=== PATIENT | female | born 1950 | race Caucasian/White ===

== ENCOUNTER → 2019-11-10 | Day surgery (SDC) | payer MEDICARE, OTHER ==
[2019-11-07 09:53] LABS: BASOPHILS % 0.4 % (0.0-1.0); EOSINOPHILS # (AUTO) 0.1 (0.0-0.4); EOSINOPHILS % 1.3 % (0.0-6.0); HEMATOCRIT 38.4 % (34.2-44.1); HEMOGLOBIN 11.9 g/dL (12.0-16.0); LYMPHOCYTES # (AUTO) 1.9 (1.0-3.2); LYMPHOCYTES % 26.7 % (18.0-39.1); MEAN CORPUSCULAR HEMOGLOBIN 29.9 pg (28-32); MEAN CORPUSCULAR VOLUME 96.5 fL (81-99); MONOCYTES # (AUTO) 0.5 (0.2-0.8); MONOCYTES % 6.4 % (4.4-11.3); NEUTROPHILS # (AUTO) 4.6 (2.1-6.9); NEUTROPHILS % 65.1 % (38.7-80.0); PLATELET COUNT 218 x10e3/uL (140-360); RED BLOOD COUNT 3.98 x10e6/uL (3.6-5.1); RED CELL DISTRIBUTION WIDTH 13.7 % (11.7-14.4)
[~2019-11-10] MED LIST: ALLOPURINOL100 MG PO; ATORVASTATIN CA20 MG PO; FENTANYL CITRATE/PF 100MCG/2 ML INJ ONE; IOPAMIDOL 200 MG/ML 20 ML VIAL IT ONE; LEVOTHYROXINE50 MCG PO; LIDOCAINE HCL 1% 30ML-PF VIAL ONE; LIDOCAINE HCL 2% LOCAL INJ 5 ML SDV VIAL INJ ONE; LISINOPRIL-HCT1 EAC1 PO; MAGNESIUM OXID400 MG PO; MIDAZOLAM HCL 2 MG/2 ML VIAL ONE; MULTI-VITAMIN1 EACH PO; OMEPRAZOLE40 MG PO; PROPOFOL IV EMULSION 10 MG/ML 20 ML VIAL ONE; SERTRALINE HCL100 MG PO; TRIAMCINOLONE ACET 40 MG/ML VIAL ONE
--- OUTSIDE RECORDS SUMMARY | 2019-11-10 05:56 | XMS REPORT | Clinical Summary ---
Author Author [facility] Organization [facility] Address Unknown Phone Unavailable Care Team Providers Care Validation Leader Name Role Phone Tomer Conner DO PCP Allergies Comments Active Allergy Reactions Severity Noted Date Nausea Codeine 02/15/2018 Sulfa drugs make mouth hard an dry Other 02/15/2018 Kills antibody in vowels an upset stomach Tetracycline 02/15/2018 Medications End Date Status Medication Sig Dispensed Refills Start Date Active sertraline (ZOLOFT) 100 Take 1 tablet 0 /02/ 201 MG tablet by mouth 8 daily. Active lisinopril-hydrochlorothi Take 1 tablet 0 01/0 2/201 azide by mouth 8 (PRINZIDE,ZESTORETIC) daily. 20-25 mg per tablet Active atorvastatin (LIPITOR) 40 Take 1 tablet 0 01/3 1/201 MG tablet by mouth 8 daily. Active levothyroxine (SYNTHROID, Take 50 mcg 0 LEVOXYL) 50 mcg tablet by mouth every morning. Active glimepiride (AMARYL) 1 MG Take 1 mg by 0 tablet mouth as needed. Active omeprazole (PriLOSEC) 20 Take 20 mg by 0 MG capsule mouth daily. Active MAGNESIUM OXIDE ORAL Take 1,500 mg 0 by mouth daily. 500 mg qam and 1000 mg qhs Active allopurinol (ZYLOPRIM) Take 100 mg 0 100 MG tablet by mouth as needed. Active multivitamin (THERAGRAN) Take 1 tablet 0 tablet by mouth daily. Active Problems No known active problems Family History Medical History Relation Name Comments Diabetes Father Cancer Maternal Aunt Breast cancer Mother Relation Name Status Comments Father Maternal Aunt Mother Social History Date Tobacco Use Types Packs/Day Years Used Current Every Day Smoker Cigarettes 0.5 50 Smokeless Tobacco: Never Used Comments: on and off Drinks/Week oz/Week Comments Alcohol Use No Sex Assigned at Date Recorded Not on file Industry Job Start Date Occupation Not on file Not on file Not on file Travel End Travel History Travel Start No recent travel history available. Last Filed Vital Signs Not on file Plan of Treatment Health Maintenance Due Date Last Done Comments BREAST CANCER SCREENING 1999 COLONOSCOPY SCREENING 1999 SHINGLES VACCINES (#1) 1999 65+ PNEUMOCOCCAL VACCINE 2014 (1 of 2 - PCV13) INFLUENZA VACCINE 01/28/2020 Results Not on fileafter 11/09/2018 Insurance Type Payer Benefit Subscriber ID Effective Phone Address Plan / Dates Group Medicare MEDICARE MEDICARE xxxxxxxxxxx 2014-P BECK, PART A AND resent [place] [employer] BANKERS LIFE AND CASUALTY BANKERS xxxxxxxxx 02/14- LIFE AND Present CASUALTY Advance Directives For more information, please contact: [phone] Patient Oracle Analyst Explanation Type Date Recorded Advance Directives, Living Will and Medical Power of Paralegal Supervisor
--- OUTSIDE RECORDS SUMMARY | 2019-11-10 05:56 | XMS REPORT ---
Author Author [facility] t Organization [facility] Address [address] [place] [address] Phone Unavailable Care Team Providers Care Parts Picker Name Role Phone Magdaleno Conner DO PCP Sherie SOSA Attphys Unavailable Payers Payer Name Policy Type Policy Number Effective Date Expiration Date S ource Problems This patient has no known problems. Allergies, Adverse Reactions, Alerts Allergy Name Allergy Type Status Severity Reaction(s) Onset Date Inacti ve Date Treating Clinician Comments Source Sulfa (Sulfonamide Antibiotics) DA Active 2018-12-08 00 :00:00 [facility] codeine DA Active 2018-12-08 00:00:00 [facility] tetracycline DA Active SV 2018-12-08 00:00:00 [facility] Sulfa (Sulfonamide Antibiotics) DA Active MO 2018-08-16 00 :00:00 [facility] codeine DA Active MD 2018-08-16 00:00:00 [facility] tetracycline DA Active MD 2018-08-16 00:00:00 [facility] Sulfa (Sulfonamide Antibiotics) DA Active MO 2018-04-14 00 :00:00 [facility] codeine DA Active MD 2018-04-14 00:00:00 [facility] tetracycline DA Active MD 2018-04-14 00:00:00 [facility] Sulfa (Sulfonamide Antibiotics) DA Active MO 2018-04-06 00 :00:00 [facility] codeine DA Active MD 2018-04-06 00:00:00 [facility] tetracycline DA Active MD 2018-04-06 00:00:00 [facility] Sulfa (Sulfonamide Antibiotics) DA Active MO 2018-03-02 00 :00:00 [facility] codeine DA Active MD 2018-03-02 00:00:00 [facility] tetracycline DA Active MD 2018-03-02 00:00:00 [facility] Sulfa (Sulfonamide Antibiotics) DA Active MO 2018-02-16 00 :00:00 [facility] codeine DA Active MD 2018-02-16 00:00:00 [facility] tetracycline DA Active MD 2018-02-16 00:00:00 [facility] Codeine Propensity to adverse reactions to drug Active 2018-02-15 00:00:00 Nausea Kiran Gallagher Other Propensity to adverse reactions Active 00:00:00 Sulfa drugs make mouth hard an dry Kiran Gallagher Tetracycline Propensity to adverse reactions to drug Active 2018-02-15 00:00:00 Kills antibody in vowels an upse t stomach Kiran Gallagher Family History Family Member Diagnosis Comments Start Date Stop Date Source Natural father Diabetes [facility] Maternal aunt Cancer [facility] Natural mother Breast cancer Kiran Gallagher Social History Social Habit Start Date Stop Date Quantity Comments Source History of tobacco use Cigarette Smoker Kiran Gallagher Sex Assigned At Oswaldo Gallagher Cigarettes smoked current (pack per day) - Reported 00:00:00 2018-02-15 00:00:00 Kiarn Gallagher Cigarette pack-years 2018-02-15 00:00:00 2018-02-15 00:00:00 Kiran Gallagher Alcohol intake 2018-02-15 00:00:00 2018-02-15 00:00:00 Current non-drinker of alcohol (finding) Kiran Gallagher Tobacco Comment 2017-08-17 00:00:00 2017-08-17 00:00:00 on and off Kiran Gallagher Smoking Status Start Date Stop Date Source Current every day smoker 2018-02-15 00:00:00 Oswaldo Gallagher Medications Ordered Medication Name Filled Medication Name Start Date Stop Da te Current Medication? Ordering Clinician Indication Dosage Frequency Signature (SIG) Comments Components Source levothyroxine (SYNTHROID, LEVOXYL) 50 mcg tablet 2017-08-17 22:16:33 Yes 50ug QD Take 50 mcg by mouth every morning. Kiran Gallagher glimepiride (AMARYL) 1 MG tablet 2017-08-17 22:16:33 Yes 1mg Take 1 mg by mouth as needed. Kiran Gallagher omeprazole (PriLOSEC) 20 MG capsule 2017-08-17 22:16:33 Yes 20mg QD Take 20 mg by mouth daily. Kiran Gallagher MAGNESIUM OXIDE ORAL 2017-08-17 22:16:33 Yes 1500mg QD Take 1,500 mg by mouth daily. 500 mg qam and 1000 mg qhs Kiran Gallagher allopurinol (ZYLOPRIM) 100 MG tablet 2017-08-17 22:16:33 Ye s 100mg Take 100 mg by mouth as needed. Kiran Gallagher multivitamin (THERAGRAN) tablet 2017-08-17 22:16:33 Yes 1{tbl} QD Take 1 tablet by mouth daily. Kiran Gallagher atorvastatin (LIPITOR) 40 MG tablet 2017-07-29 00:00:00 Yes 1{tbl} QD Take 1 tablet by mouth daily. Kiran Monzon thodi sertraline (ZOLOFT) 100 MG tablet 2017-06-30 00:00:00 Yes 1{tbl} QD Take 1 tablet by mouth daily. Kiran Floyd st lisinopril-hydrochlorothiazide (PRINZIDE,ZESTORETIC) 20-25 m g per tablet 2017-06-30 00:00:00 Yes 1{tbl} QD Take 1 tablet by m outh daily. Kiran Gallagher Procedures This patient has no known procedures. Plan of Care Planned Activity Planned Date Details Comments Source Future Scheduled Test [code = ] Future Scheduled Test [code = ] Future Scheduled Test [code = ] Future Scheduled Test [code = ] Future Scheduled Test [code = ] Results Test Description Test Time Test Comments Results Result Comments Source - MRI L-SPINE W/O CONT 2019-03-28 11:04:00 Alyssa ent Name: KAELA DURAN Unit No: [id number] EXAMS: CPT CODE: [id number] MRI L-SPINE W/O CONT [id number] MRI OF THE LUMBAR SPINE: DIAGNOSIS: 1. At L1-2, disc desiccation. No central canal or foraminal stenosis. 2. At L2-3, moderate to marked disc degeneration 3 mm broad-based subligamentous disc protrusion. No central canal stenosis. Moderate to marked bilateral foraminal stenosis secondary to endplate remodeling lateralizing disc. 3. At L3-4, moderate disc degeneration. Grade 1 spondylolisthesis of L3 on L4. Findings are suggestive of a left hemilaminotomy. Marked bilateral facet arthropathy. Marked right foraminal moderate to marked left foraminal stenosis. There is a approximately 7 mm right foraminal disc herniation which appears to impinge the right L3 nerve root. This is not significantly changed in the interval from the previous exam. 4. At L4-5, marked disc degeneration. No central canal stenosis. Mild to moderate facet arthropathy. Moderate bilateral foraminal stenosis. 5. At L5-S1, disc desiccation. No central canal or foraminal stenosis. Marked right facet moderate to marked left facet arthropathy. 6. High signal lesions in the right kidney are compatible with renal cyst. These were seen on the previous exam. COMMENT: COMPARISON: The current exam is compared to a previous exam dated October 09, 2017. Sagittal T1, T2 and STIR and axial T1 and T2-weighted sequences are obtained of the lumbar spine. The lumbar vertebrae are within normal limits in signal. The findings are as above. The conus is in the expected location. at 1104 Reported and signed by: Alber Stiles MD CC: Chanel Quintana MD Technologist: Keith Morton Transcribed D/ (5004) t.SDR.GVG [facility] NAME: KAELA DURAN [address] [facility] PHYS: [id number] - Chanel Quintana : 1950 AGE: 68 SEX: F [place], [place] [address] LOC: Y.MRI PHONE #: [phone] EXAM DATE: 03/26/2019 STATUS: DEP CLI FAX #: [phone] RAD #: D/C DT PAGE 1 Signed Report Patient Name: KAELA DURAN Unit No: [id number] EXAMS: CPT CODE: [id number] MRI L-SPINE W/O CONT 38799 <Continued> Orig Print D/T: S: 03/28/2019 (1108) [facility] NAME: KAELA DURAN [address] [facility] PHYS: AUREAURosenda - Chanel Quintana : 1950 AGE: 68 SEX: F [place], [place] [address] LOC: Y.MRI PHONE #: [phone] EXAM DATE: 03/26/2019 STATUS: DEP CLI FAX #: [phone] RAD #: D/C DT PAGE 2 Signed Report GLUBED 2018-12-08 11:26:00 Test Item GLUBED (test code = GLUBED) 96 mg/dL 60-125 N - XR FLUORO FOR SPINE [id number] 11:14:00 Patient Name: KAELA DURAN Unit No: [id number] EXAMS: CPT CODE: [id number] XR FLUORO FOR SPINE INJ 69791 LUMBAR TRANSFORAMINAL INJECTION REFERRING PHYSICIAN: PREOPERATIVE DIAGNOSIS: Degenerative Lumbar Disc Disease. POSTOPERATIVE DIAGNOSIS: Right lumbar radiculopathy PROCEDURES PERFORMED 1. Fluoroscopically guided needle localization of the right L3, right L4, right L5 spinal nerve/nerves with transforaminal epidural steroid injection/injections. 2. Transforaminal epidurogram/epidurograms at right L3, left L4, left L5. FINDINGS: Poor filling all. Concordant provocation right L4 hip right L3 anterior thigh. Pain relief-100%. ANTIBIOTIC: Cefazolin ESTIMATED BLOOD LOSS: Minimal ANESTHESIA: (TIVA )Total intravenous anesthetic (patient intolerant to sedatives and hypnotics) COMPLICATIONS: None DETAILS OF PROCEDURE: After obtaining stable vital signs, informed consent and IV access, with no known contraindications to proceeding, the patient was taken to the fluoroscopy suite and placed in a prone position with all extremities padded and appropriate monitors placed. A sterile prep and drape was performed over the lumbosacral spine. Using fluoroscopic visualiza tion at each level the insertion site was marked for a paravertebral appro ach to the foramen. Using standard technique, a 25 gauge needle was advanc ed to the base of the pedicle. In AP view, final positioning was obtained outside the 6 on the clock position on the pedicle. Then, 1 ml of Isovue-3 00 contrast was injected to produce the epidurograms. No paresthesias were elicited with needle insertion or injection and there were no signs of intravascular or intrathecal uptake. Then, with 1 ml of 4% lidocaine and 10 mg of triamcinolone was injected incrementally with frequent negat sandi aspirations. There were no signs of intravascular or intrathecal uptak e. Each subsequent level was done using the same technique and medications . The patient's vital signs remained stable. The patient was taken to the PACU in good condition. at 1114 Reported and signed by: Charlie Rodriguez M.D. [facility] NAME: KAELA DURAN [address] [facility] PHYS: Charlie Park MD [place] [address] : 1950 AGE: 68 SEX: F LOC: CARLITOS PHONE #: [phone] EXAM DATE: 12/08/2018 STATUS: REG [facility] FAX #: [phone] RAD #: D/C DT PAGE 1 Signed Report (CONTINUED) Patient Name: KAELA DURAN Unit No: [id number] EXAMS: CPT CODE: [id number] XR FLUORO FOR SPINE INJ 90275 <Continued> CC: Tomer Conner DO Technologist: Melany Delgado(R) Transcribed D/ (1829) tFINN [facility] NAME: KAELA DURAN [address] [facility] PHYS: Charlie Park MD [place] [address] : 1950 AGE: 68 SEX: F LOC: [place] PHONE #: [phone] EXAM DATE: 12/08/2018 STATUS: REG [facility] FAX #: [phone] RAD #: D/C DT PAGE 2 Signed Report Patient Name: KAELA DURAN Unit No: [id number] EXAMS: CPT CODE: [id number] XR FLUORO FOR SPINE INJ 68852 <Continued> Orig Print D/T: S: 12/08/2018 (7338) [facility] NAME: KAELA DURAN [address] [facility] PHYS: DOCUD - Doctor,Charlie East MD [place], [place] [address] : 1950 AGE: 68 SEX: F LOC: CAR[place] PHONE #: [phone] EXAM DATE: 12/08/2018 STATUS: REG [facility] FAX #: [phone] RAD #: D/C DT PAGE 3 Signed Report [id number] 09:36:00* Test Item Value Reference Range Interpretation Comments GLUBED (test code = GLUBED) 104 mg/dL 60-125 N BREAST ULTRASOUND [id number] 14:18:24- BREAST ULTRASOUND BILATERALULTRASOUND OF BOTH BREASTS AND BOTH AXILLA: 09/20/2018CLINICAL: Followup to previous exam. Comparison is made to exams dated 09/20/2018 mammogram - [facility]-, 04/03/2018 mammogram, 04/12/2016 mammogram - [facility], 08/14/2015 ultrasound, and 08/14/2015 mammogram - [facility]. Real-time ultrasound of both breasts and both axilla was performed. No abnormalities were seen sonographically in either breast or either axilla. Clinical breast exam was unremarkable.IMPRESSION: NEGATIVE There is no sonographic evidence of malignancy. Resume annual screening mammography in one year. Fariha Brown M.D. dm/:09/20/2018 14:18:24 Entry: - 09/23/2018 09:40:28copy to: Tomer Conner D.O., ph: [phone], fax: [phone] Technologist: Penny Holden , [facility]-letter sent: BIRADS 1-2 Combo FU Letter Ultrasound BI-RADS: 1 NegativeDIAG MAMM RIGHT JEFF CAD DIGITAL 2018-09-20 14:17:34 - DIAG MAMM RIGHT JEFF CAD DIGITALUNILATERAL RIGHT DIGITAL DIAGNOSTIC MAMMOGRAM 3D/2D WITH CAD: 09/20/2018CLINICAL: Followup to previous exam. Digital breast tomosynthesis was performed in addition to routine CC and MLO views. Current mammographic images were evaluated by either a Negotiant M-Vu or a Hologic ImageChecker CAD (computer aided detection system). Comparison is made to exams dated 04/03/2018 mammogram, 04/12/2016 mammogram - [facility], and 04/14/2015 mammogram - [facility]. There are scattered fibroglandular tissues in the right breast. There is a post surgical scar in the right breast at 1 o'clock, 10 cm from the nipple, from the removal of a sebaceous cyst. No other significant masses or calcifications are seen in the breast. IMPRESSION: BENIGNUltrasound pending for additional evaluation. There is no mammographic evidence of malignancy. Fariha Brown M.D. dm/:09/20/2018 14:17:34 Entry: - 09/23/2018 09:39:41copy to: Tomer Conner D.O., ph: [phone], fax: [phone] Technologist: Yanelis Felton , [facility] BI-RADS: 2 BenignGLUBED 2018-09-03 08:58:00* Test Item Value Reference Range Interpretation Comments GLUBED (test code = GLUBED) 94 mg/dL 60-125 N CHEST 2 VIEWS [place] [address] Patient Name: KAELA DURAN MR #: [id number] : 1950 Age/Sex: 66/F Req #: [id number] Adm Physician: Ordered by: LUIS SOSA MD Report #: [id number] Location: OR Room/Bed: Procedure: [id number] DX/CHEST 2 VIEWS Exam Date: 0 03/25/17 Exam Time: 1700 REPORT STATUS: Signed PROCEDURE: Frontal and lateral views of the chest. COMPARISON: None. INDICATIONS: PREOPERATIVE FOR CYST REMOVAL FINDINGS: Lines/tu bes: 08/15/10 Lungs: The lungs are well inflated and clear. There is no ev idence of pneumonia or pulmonary edema. Pleura: There is no pleural ef fusion or pneumothorax. Heart and mediastinum: The heart and the mediasti num are normal. Bones: No acute bony abnormality. Degenerative changes of spine. IMPRESSION: 1. No acute cardiopulmonary disease. Dic tated by: Tano Blake M.D. on 03/25/2017 at 17:23 Electronically appro solange by: Tano Blake M.D. on 03/25/2017 at 17:23 Dictated By : TANO BLAKE MD 172 Transcribed By: AVTAR on 03/25/171722 COPY TO: LUIS SOSA MD
[2019-11-10 08:30] VITALS: BP 107/82
== END | disposition home or self-care (01) ==
LOC: OR 05:48
PROVIDERS: ATTEND Physical Medicine & Rehabilitation Pain Medicine
DX: M47.896 Other spondylosis, lumbar region (principal); M96.1 Postlaminectomy syndrome, not elsewhere classified; J44.9 Chronic obstructive pulmonary disease, unspecified; I10 Essential (primary) hypertension; E78.5 Hyperlipidemia, unspecified; E03.9 Hypothyroidism, unspecified; E11.9 Type 2 diabetes mellitus without complications; E66.01 Morbid (severe) obesity due to excess calories; F32.9 Major depressive disorder, single episode, unspecified; Z88.6 Allergy status to analgesic agent; Z88.1 Allergy status to other antibiotic agents; Z01.810 Encounter for preprocedural cardiovascular examination; Z01.812 Encounter for preprocedural laboratory examination; Z11.59 Encounter for screening for other viral diseases; Z68.34 Body mass index [BMI] 34.0-34.9, adult
CPT/HCPCS: 36415 ×2; 64493; 64494; 64495; 82948; 85025; 87635; 93005; J2001 ×2; J2250; J2704; J3010; J3301; Q9967; 77003

== ENCOUNTER → 2021-03-07 | Day surgery (SDC) | payer MEDICARE, OTHER ==
[~2021-03-07] MED LIST changes: +FAMOTIDINE20 MG PO; -FENTANYL CITRATE/PF 100MCG/2 ML INJ ONE; +GLIMEPIRIDE2 MG PO; -IOPAMIDOL 200 MG/ML 20 ML VIAL IT ONE; +IOPAMIDOL 300MG/ML 50ML INFUS..BTL IV ONE; -LIDOCAINE HCL 1% 30ML-PF VIAL ONE; -LIDOCAINE HCL 2% LOCAL INJ 5 ML SDV VIAL INJ ONE; -MIDAZOLAM HCL 2 MG/2 ML VIAL ONE; +MONTELUKAST SOD10 MG PO; +POVIDONE IODINE 0.05% 0.05 % ML PO ONE; +SERTRALINE HCL50 MG PO; -TRIAMCINOLONE ACET 40 MG/ML VIAL ONE
[2021-03-07 07:05] VITALS: BP 99/61
== END | disposition home or self-care (01) ==
LOC: OR 06:05
PROVIDERS: ATTEND Physical Medicine & Rehabilitation Pain Medicine
DX: M46.1 Sacroiliitis, not elsewhere classified (principal); M96.1 Postlaminectomy syndrome, not elsewhere classified; M47.896 Other spondylosis, lumbar region; E11.9 Type 2 diabetes mellitus without complications; I10 Essential (primary) hypertension; J44.9 Chronic obstructive pulmonary disease, unspecified; E03.9 Hypothyroidism, unspecified; F17.210 Nicotine dependence, cigarettes, uncomplicated; Z88.1 Allergy status to other antibiotic agents; Z88.6 Allergy status to analgesic agent; Z01.812 Encounter for preprocedural laboratory examination; Z20.822 Contact with and (suspected) exposure to COVID-19; Z79.84 Long term (current) use of oral hypoglycemic drugs
CPT/HCPCS: 36415; 82948; G0260; J2704; Q9967; U0002; 77002

== ENCOUNTER → 2021-07-04 | Day surgery (SDC) | payer MEDICARE, OTHER ==
[2021-07-02 10:34] LABS: BASOPHILS % 0.4 % (0.0-1.0); EOSINOPHILS # (AUTO) 0.2 (0.0-0.4); EOSINOPHILS % 2.7 % (0.0-6.0); HEMOGLOBIN 12.1 g/dL (12.0-16.0); LYMPHOCYTES # (AUTO) 2.1 (1.0-3.2); LYMPHOCYTES % 28.4 % (18.0-39.1); MEAN CORPUSCULAR HEMOGLOBIN 31.2 pg (28-32); MEAN CORPUSCULAR VOLUME 100.5 fL (81-99); MONOCYTES # (AUTO) 0.5 (0.2-0.8); MONOCYTES % 7.1 % (4.4-11.3); NEUTROPHILS # (AUTO) 4.4 (2.1-6.9); PLATELET COUNT 240 x10e3/uL (140-360); RED BLOOD COUNT 3.88 x10e6/uL (3.6-5.1); RED CELL DISTRIBUTION WIDTH 14.7 % (11.7-14.4)
[~2021-07-04] MED LIST changes: +IOPAMIDOL 200 MG/ML 20 ML VIAL IT ONE; -IOPAMIDOL 300MG/ML 50ML INFUS..BTL IV ONE; +LIDOCAINE HCL 1% 30ML-PF VIAL ONE; +LIDOCAINE HCL 2% LOCAL INJ 5 ML SDV VIAL INJ ONE; +MIDAZOLAM HCL 2 MG/2 ML VIAL ONE; +TRIAMCINOLONE ACET 40 MG/ML VIAL ONE
[2021-07-04 07:15] VITALS: BP 132/78
== END | disposition home or self-care (01) ==
LOC: OR 05:59
PROVIDERS: ATTEND Physical Medicine & Rehabilitation Pain Medicine
DX: M47.896 Other spondylosis, lumbar region (principal); M46.1 Sacroiliitis, not elsewhere classified; M96.1 Postlaminectomy syndrome, not elsewhere classified; M25.562 Pain in left knee; M25.561 Pain in right knee; I45.10 Unspecified right bundle-branch block; E03.9 Hypothyroidism, unspecified; E11.9 Type 2 diabetes mellitus without complications; J44.9 Chronic obstructive pulmonary disease, unspecified; I10 Essential (primary) hypertension; Z88.6 Allergy status to analgesic agent; Z88.1 Allergy status to other antibiotic agents; Z01.810 Encounter for preprocedural cardiovascular examination; Z01.812 Encounter for preprocedural laboratory examination; Z20.822 Contact with and (suspected) exposure to COVID-19; Z79.84 Long term (current) use of oral hypoglycemic drugs; Z79.899 Other long term (current) drug therapy
CPT/HCPCS: 36415 ×2; 64493; 64494; 64495; 77003; 82948; 85025; 93005; J2001 ×2; J2250; J2704; J3301; Q9967; U0002